=== PATIENT | male | born 1985 | race Hispanic/Latino ===

== ENCOUNTER 2018-09-27 23:21 | Emergency (ER) | payer OTHER ==
[~2018-09-27] VITALS: Ht 175.3 cm; Wt 85.9 kg
--- NOTE | 2018-09-28 00:05 | REPVR ---
EXAM: CT Head Without Contrast EXAM DATE/TIME: 09/27/2018 11:27 PM CLINICAL HISTORY: 33 years old, male; Injury or trauma; Fall; Initial encounter; Concussion / head injury; With loss of consciousness; Not specified; Additional info: Head inj/+loc TECHNIQUE: Axial computed tomography images of the head/brain without contrast. All CT scans at this facility use at least one of these dose optimization techniques: automated exposure control; mA and/or kV adjustment per patient size (includes targeted exams where dose is matched to clinical indication); or iterative reconstruction. COMPARISON: No relevant prior studies available. FINDINGS: Brain: Normal. No hemorrhage. No significant white matter disease. No edema. Ventricles: Normal. No ventriculomegaly. Bones/joints: Unremarkable. No acute fracture. Sinuses: Visualized sinuses are unremarkable. No acute sinusitis. Mastoid air cells: Visualized mastoid air cells are unremarkable. No mastoid effusion. Soft tissues: Unremarkable. IMPRESSION: No acute intracranial abnormality. Electronically signed by: Phillip Gamez On 09/28/2018 00:05:09 AM
[2018-09-28] MEDS ORDERED: diphenhydrAMINE 25 MG CAP PO ONE (00:15)
[2018-09-28] MEDS ORDERED: KETOROLAC TROMETHAMINE 10 MG TAB PO ONE (00:15)
[2018-09-28] MEDS ORDERED: ONDANSETRON 4 MG ORAL DISINTEGRATING TAB (Q0162 PER 1MG) PO ONE (00:15)
[2018-09-28] MEDS ORDERED: ACETAMINOPHEN 500 MG TAB PO ONE (01:00)
[2018-09-28] MEDS ORDERED: PROMETHAZINE 25 MG TAB PO ONE (01:00)
[2018-09-28] MEDS ORDERED: ONDA4TAB6 PO (01:43)
[2018-09-28 01:47] VITALS: BP 133/63
== END 2018-09-28 02:13 | disposition home or self-care (01) ==
LOC: M ED 23:21
DX: S06.0X0A Concussion without loss of consciousness, initial encounter (principal); W00.0XXA Fall on same level due to ice and snow, initial encounter; Y92.138 Other place on military base as the place of occurrence of the external cause; Y99.1 Military activity
CPT/HCPCS: 70450; 99283; Q0162

== ENCOUNTER 2020-02-01 14:49 | Emergency (ER) | payer OTHER ==
[~2020-02-01 14:49] MED LIST: ONDA4TAB6 PO
[2020-02-01] MEDS ORDERED: METOCLOPRAMIDE INJ 10MG/2ML VIAL (J2765 PER 1) IV ONE (15:15)
[2020-02-01] MEDS ORDERED: NS 1,000 ML IV ONE (15:15)
[2020-02-01 15:59] LABS: BASO % 0.1 % (0.0-1.0); HEMATOCRIT 45.8 % (42.0-52.0); HEMOGLOBIN 15.5 g/dl (13.5-17.5); LYMPH # 0.8 10^3/uL (1.5-5.0); LYMPH % 5.7 % (24.0-44.0); MEAN CORPUSCULAR HEMOGLOBIN 28.9 pg (27.0-33.0); MEAN CORPUSCULAR HGB CONC 33.8 g/dl (32.0-36.5); MEAN CORPUSCULAR VOLUME 85.4 fl (80.0-96.0); MONO # 0.7 10^3/uL (0.0-0.8); MONO % 4.8 % (0.0-5.0); NEUTROPHILS # 12.9 10^3/uL (1.5-8.5); NEUTROPHILS % 89.1 % (36.0-66.0); PLATELET COUNT, AUTOMATED 243 10^3/uL (150-450); RED BLOOD COUNT 5.36 10^6/uL (4.30-6.10); WHITE BLOOD COUNT 14.5 10^3/uL (4.0-10.0)
[2020-02-01 16:22] LABS: ALBUMIN 4.3 GM/DL (3.2-5.2); ALT/SGPT 27 U/L (12-78); BILIRUBIN,TOTAL 0.7 MG/DL (0.2-1.0); BLOOD UREA NITROGEN 9 MG/DL (7-18); CALCIUM LEVEL 9.3 MG/DL (8.5-10.1); CARBON DIOXIDE LEVEL 26 MEQ/L (21-32); CHLORIDE LEVEL 105 MEQ/L (98-107); CREATININE FOR GFR 1.13 MG/DL (0.70-1.30); GLOMERULAR FILTRATION RATE > 60.0 (>60); GLUCOSE, FASTING 104 MG/DL (70-100); LIPASE 82 U/L (73-393); SODIUM LEVEL 137 MEQ/L (136-145); TOTAL PROTEIN 7.8 GM/DL (6.4-8.2)
[2020-02-01] MEDS ORDERED: ISOVUE-370 76% 100ML VIAL As Ordered ONE (17:00)
[2020-02-01] MEDS ORDERED: AMOX500C PO (17:30)
--- NOTE | 2020-02-01 17:58 | REPVR ---
PROCEDURE INFORMATION: Exam: CT Abdomen And Pelvis With Contrast Exam date and time: 02/01/2020 5:06 PM Age: 34 years old Clinical indication: Abdominal pain; Localized; Right lower quadrant (rlq); Additional info: Rlq pain TECHNIQUE: Imaging protocol: Computed tomography of the abdomen and pelvis with intravenous contrast. Radiation optimization: All CT scans at this facility use at least one of these dose optimization techniques: automated exposure control; mA and/or kV adjustment per patient size (includes targeted exams where dose is matched to clinical indication); or iterative reconstruction. Contrast material: ISOVUE 370; Contrast volume: 100 ml; Contrast route: INTRAVENOUS (IV); COMPARISON: No relevant prior studies available. FINDINGS: Lungs: Included lung bases are clear. Liver: Normal. No mass. Gallbladder and bile ducts: Normal. No calcified stones. No ductal dilation. Pancreas: Normal. No ductal dilation. Spleen: Normal. No splenomegaly. Adrenals: Normal. No mass. Kidneys and ureters: There is mild fullness of the right renal pelvis but no dilatation of the calices. No ureteral calculi are seen. There is a 6 mm hypodense lesion in the anterior aspect of the mid right kidney. Stomach and bowel: No bowel dilatation to indicate obstruction. No pneumatosis. There are a few scattered colonic diverticula but no focal features of diverticulitis. Appendix: Appendix is unremarkable. Intraperitoneal space: Unremarkable. No free air. No significant fluid collection. Vasculature: Unremarkable. No abdominal aortic aneurysm. Lymph nodes: Unremarkable. No enlarged lymph nodes. Bladder: There is wall thickening in the bladder, particularly anteriorly, but this is smoothly marginated rather than clearly nodular. Reproductive: Unremarkable as visualized. Bones/joints: There is degenerative disc disease with posterior disc bulge at L4-L5 and mild degenerative facet disease, resulting in mild central canal narrowing. There is a 1.9 cm lesion in the right ilium with thick sclerotic rim and oval configuration. There is central lucency. No associated cortical destruction or periosteal reaction. No associated soft tissue mass or aggressive features on CT. Soft tissues: Unremarkable. IMPRESSION: 1. Bladder wall thickening, particularly anteriorly, which appears to be real despite its partially collapsed state. The possibility of infectious or inflammatory cystitis is raised. 2. Mild fullness of the right renal pelvis but no true hydronephrosis or evidence of ureteral calculus. 3. 6 mm hypodense lesion in the right kidney, too small to characterize but most likely a simple cyst. No further imaging follow-up is recommended. 4. 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 COMMENTS: Consistent with the [employer]'s Incidental Findings Committee white paper (J Am Josette Radiol 2018): Any incidental renal lesion less than 1.0 cm or classified as too small to characterize, or any incidental cystic renal lesion characterized as simple-appearing, is likely benign. No follow-up imaging is recommended for these lesions per consensus recommendations based on imaging criteria. Electronically signed by: Melanie Izaguirre On 02/01/2020 17:57:51 PM
[2020-02-01 18:14] VITALS: BP 135/90
--- NOTE | 2020-02-01 23:52 | REP ---
CHEST, SINGLE VIEW: There is no evidence of acute infiltrate. No pleural effusion is seen. The heart is normal in size. The mediastinal silhouette is unremarkable. The visualized osseous structures are intact. IMPRESSION: No acute pulmonary disease. Electronically Signed by Sahil Thorpe MD 02/05/2020 09:12 A
--- NOTE | 2020-02-06 11:09 | ED PDOC ---
Post-Departure Follow-Up [facility] faxed formal report of ct abd/p for fu Aurea Montez MD Feb 06, 2020 11:09
== END 2020-02-01 18:21 | disposition home or self-care (01) ==
LOC: M ED 14:49 → EDBD 14:49 → M ED 18:21
DX: J02.0 Streptococcal pharyngitis (principal); Z03.818 Encounter for observation for suspected exposure to other biological agents ruled out; R93.421 Abnormal radiologic findings on diagnostic imaging of right kidney; R93.3 Abnormal findings on diagnostic imaging of other parts of digestive tract
CPT/HCPCS: 36415; 71045; 74177; 80053; 83690; 85025; 87880; 96361; 96374; 99284; J2765; Q9967; U0002